=== PATIENT | male | born 1980 | race Two or more races ===

== ENCOUNTER 2018-10-01 11:57 | Emergency (ER) | payer OTHER ==
[~2018-10-01] VITALS: Ht 185.4 cm; Wt 100.0 kg
[2018-10-01 12:38] VITALS: BP 134/91
== END 2018-10-01 15:00 | disposition home or self-care (01) ==
LOC: ED 14:50
DX: S21.219D Laceration without foreign body of unspecified back wall of thorax without penetration into thoracic cavity, subsequent encounter (principal); X58.XXXD Exposure to other specified factors, subsequent encounter
CPT/HCPCS: 99283